=== PATIENT | male | born 1975 | race Caucasian/White ===

== ENCOUNTER 2017-03-08 14:51 | Emergency (ER) | payer MEDICAID ==
[~2017-03-08] VITALS: Ht 177.8 cm; Wt 72.3 kg
[~2017-03-08 14:51] MED LIST: AMOX1TAB64 PO; MELA1TAB15 PO; NICO-487 TD; OXYC1TAB7 PO; [UNRECOGNIZED DRUG - REMARK] IM
[2017-03-08 14:53] VITALS: BP 154/98
[2017-03-08] MEDS ORDERED: DIAZEPAM 5 MG TABLET ONE (15:28)
[2017-03-08] MEDS ORDERED: KETOROLAC 30 MG/1 ML ONE (15:28)
[2017-03-08] MEDS ORDERED: KETOROLAC 30 MG/1 ML IM ONE (15:30)
[2017-03-08] MEDS ORDERED: DIAZEPAM 5 MG TABLET PO ONE (15:30)
== END 2017-03-08 16:23 | disposition home or self-care (01) ==
LOC: ED 16:17
DX: S43.401A Unspecified sprain of right shoulder joint, initial encounter (principal); W00.0XXA Fall on same level due to ice and snow, initial encounter; Y93.89 Activity, other specified; Y92.488 Other paved roadways as the place of occurrence of the external cause; Y99.8 Other external cause status
CPT/HCPCS: 72050; 73030; 96372; 99284; J1885